=== PATIENT | male | born 1935 | race Caucasian/White ===

== ENCOUNTER 2018-08-28 20:15 | Observation (INO) | payer MEDICARE, BC ==
[2018-08-28] MEDS ORDERED: ASPIRIN 81 MG CHEWABLE TABLET PO ONE (20:42)
--- NOTE | 2018-08-28 20:51 | Emergency Department Record ---
History of Present Illness - General Chief Complaint: Chest Pain Stated Complaint: CHEST PAIN,EXTREMITY NUMBNESS Time Seen by Provider: 08/28/18 20:36 Source: Patient Mode of Arrival: Ambulatory Limitations: No limitations - History of Present Illness Initial Comments: pt had hip replacement 2 wks ago. today he developed chills, mild chest pain, tingling in his l hand Complaint: Chest pain Onset/Timin -: Hour(s) Onset: During rest Pain Location: Substernal Pain Radiation: None Severity: Mild Severity scale (1-10): 2 Quality: Aching, Other Consistency: Constant Improves With: Nothing Context: Recent surgery Anginal Symptoms: Nausea, Other Other Symptoms: Leg swelling, Other Treatments Prior to Arrival: Aspirin - Related Data Home Medications Medication Instructions Recorded Confirmed Last Taken Biotin 5 mg PO DAILY 08/28/18 08/28/18 08/28/18 Leuprolide Acetate [Eligard] 7.5 mg SQ DAILY 08/28/18 08/28/18 08/28/18 Meloxicam 7.5 mg PO DAILY 08/28/18 08/28/18 08/28/18 Tramadol HCl [Ultram] 50 mg PO Q6H PRN 08/28/18 08/28/18 08/28/18 Previous Rx's Medication Instructions Recorded Enalapril Maleate [Vasotec] 5 mg PO DAILY #14 tablet 11/27/13 Allergies Allergy/AdvReac Type Severity Reaction Status Date / Time Penicillins Allergy Unknown HIVES Unverified 08/02/14 14:21 ciprofloxacin [From Cipro] Allergy MUSCLE PAIN Verified 08/02/14 14:21 ciprofloxacin HCl Allergy MUSCLE PAIN Verified 08/02/14 14:21 [From Cipro] Sulfa (Sulfonamide Allergy ITCHING Verified 08/02/14 14:21 Antibiotics) nitroglycerin AdvReac HYPERSENSIT Verified 08/02/14 14:21 [From Nitro-Bid] IVITY Travel Screening - Travel/Exposure Within Last 30 Days Have you traveled within the last 30 days?: No - Travel Symptoms Symptom Screening: None Review of Systems Reviewed: No additional complaints except as noted below Constitutional: Reports: As per HPI, Chills. Denies: Fever, Malaise, Night sweats, Weakness, Weight change Eyes: Reports: As per HPI. Denies: Eye discharge, Eye pain, Photophobia, Vision change ENT: Reports: As per HPI. Denies: Congestion, Dental pain, Ear pain, Epistaxis, Hearing loss, Throat pain Respiratory: Reports: As per HPI. Denies: Cough, Dyspnea, Hemoptysis, Stridor, Wheezes Cardiovascular: Reports: As per HPI, Chest pain. Denies: Arrhythmia, Dyspnea on exertion, Edema, Murmurs, Orthopnea, Palpitations, Paroxysmal nocturnal dyspnea, Rheumatic Fever, Syncope Endocrine: Reports: As per HPI. Denies: Fatigue, Heat or cold intolerance, Polydipsia, Polyuria Gastrointestinal: Reports: As per HPI. Denies: Abdominal pain, Constipation, Diarrhea, Hematemesis, Hematochezia, Melena, Nausea, Vomiting Genitourinary: Reports: As per HPI. Denies: Dysuria, Frequency, Hematuria, Incontinence, Retention, Testicular pain, Testicular mass, Urgency Musculoskeletal: Reports: As per HPI. Denies: Arthralgia, Back pain, Gout, Joint swelling, Myalgia, Neck pain Skin: Reports: As per HPI. Denies: Bruising, Change in color, Change in hair/nails, Lesions, Pruritus, Rash Neurological: Reports: As per HPI. Denies: Abnormal gait, Confusion, Headache, Numbness, Paresthesias, Seizure, Tingling, Tremors, Vertigo, Weakness Psychiatric: Reports: As per HPI. Denies: Anxiety, Auditory hallucinations, Depression, Homicidal thoughts, Suicidal thoughts, Visual hallucinations Hematological/Lymphatic: Reports: As per HPI. Denies: Anemia, Blood Clots, Easy bleeding, Easy bruising, Swollen glands Past Medical History - SOCIAL HISTORY Smoking Status: Former smoker Alcohol Use: None Drug Use: None - RESPIRATORY Hx Respiratory Disorders: No - CARDIOVASCULAR Hx Cardio Disorders: Yes Hx Hypertension: Yes - NEURO Hx Neuro Disorders: No - GI Hx GI Disorders: Yes Hx Reflux: Yes Hx of Polyps: Yes - Hx Genitourinary Disorders: Yes Hx Prostate Problems: Yes (CA) - ENDOCRINE Hx Endocrine Disorders: No - MUSCULOSKELETAL Hx Musculoskeletal Disorders: Yes Hx Arthritis: Yes - PSYCH Hx Psych Problems: No - HEMATOLOGY/ONCOLOGY Hx Hematology/Oncology Disorders: Yes Hx Cancer: Yes (basal cell ca forehead, prostate) Family Medical History Any Significant Family History?: No Family Hx Comment (NOT TO BE USED IN PLACE OF ITEMS BELOW): denies Physical Exam - General General Appearance: Alert, Oriented x3, Cooperative, Mild distress - Head Head exam: Normal inspection - Eye Eye exam: Normal appearance, PERRL, EOMI Pupils: Normal accommodation - ENT ENT exam: Normal exam, Mucous membranes moist, Normal external ear exam, Normal orophraynx Ear exam: Normal external inspection. negative: External canal tenderness Nasal Exam: Normal inspection. negative: Discharge, Sinus tenderness Mouth exam: Normal external inspection, Tongue normal Teeth exam: Normal inspection. negative: Dental caries Throat exam: Normal inspection. negative: Tonsillar erythema, Tonsillar exudate - Neck Neck exam: Normal inspection, Full ROM. negative: Tenderness - Respiratory Respiratory exam: Normal lung sounds bilaterally. negative: Respiratory distress - Cardiovascular Cardiovascular Exam: Regular rate, Normal rhythm, Normal heart sounds - GI/Abdominal GI/Abdominal exam: Soft, Normal bowel sounds. negative: Tenderness - Rectal Rectal exam: Deferred - exam: Deferred - Extremities Extremities exam: Normal capillary refill, Tenderness (post op r). negative: Full ROM - Back Back exam: Reports: Normal inspection, Full ROM. Denies: Muscle spasm, Rash noted, Tenderness - Neurological Neurological exam: Alert, CN II-XII intact, Normal gait, Oriented X3 - Psychiatric Psychiatric exam: Normal affect, Normal mood - Skin Skin exam: Dry, Intact, Normal color, Warm Course Vital Signs 08/28/18 20:19 Temperature 97.4 F L Pulse Rate 97 H Respiratory 20 Rate Pulse Ox 98 - Reevaluation(s) Reevaluation #1: 08/28/18 23:56 pt refuses ntg. still has slight cp Reevaluation #2: 08/28/18 23:56 pts hgb has dropped from 12 to 8,5 from surgery Medical Decision Making - Lab Data Result diagrams: 08/28/18 20:20 08/28/18 20:20 Disposition Disposition: Admit Clinical Impression: Hyponatremia Chest pain Qualifiers: Chest pain type: unspecified Qualified Code(s): R07.9 - Chest pain, unspecified Anemia Qualifiers: Anemia type: other cause Other causes of anemia: acute posthemorrhagic Qualified Code(s): D62 - Acute posthemorrhagic anemia Disposition: Still a Patient at [facility] Decision to Admit: Admit from ER Decision to Admit Date: 08/28/18 Decision to Admit Time: 23:59 Forms: Patient Portal Access Quality - Quality Measures Quality Measures: N/A - Blood Pressure Screening Does Patient Have Any of the Following: Active Dx of HTN Blood Pressure Classification: Hypertensive Reading Systolic Measurement: 165 Diastolic Measurement: 77 Screening for High Blood Pressure: Patient Exclusion, Hx of HTN [[id number]]
[2018-08-28 20:58] LABS: HEMATOCRIT 26.2 % (42.0-52.0); MEAN CELL VOLUME 94.6 fl (81-97); MEAN CORPUSCULAR HEMOGLOBIN 30.6 pg (27-33); MEAN CORPUSCULAR HGB CONC 32.4 g/dl (32-36); MEAN PLATELET VOLUME 8.8 fl (7.4-10.4); RED BLOOD COUNT 2.77 M/uL (4.40-5.70); RED CELL DISTRIBUTION WIDTH 15.1 % (11.5-14.5)
[2018-08-28 20:59] LABS: HEMOGLOBIN 8.5 gm/dl (14.0-18.0); PLATELET COUNT 686 K/uL (130-400)
[2018-08-28 21:06] LABS: BLOOD UREA NITROGEN 18 mg/dL (8-23)
[2018-08-28 21:07] LABS: URINE APPEARANCE CLEAR; URINE BILIRUBIN NEGATIVE (NEGATIVE); URINE BLOOD NEGATIVE (NEGATIVE); URINE COLOR STRAW; URINE GLUCOSE (UA) NEGATIVE (NEGATIVE); URINE KETONE NEGATIVE (NEGATIVE); URINE LEUKOCYTE ESTERASE NEGATIVE (NEGATIVE); URINE NITRITE NEGATIVE (NEGATIVE); URINE PROTEIN NEGATIVE (NEGATIVE); URINE UROBILINOGEN 0.2 E.U./dL (0.20 - 1.00)
[2018-08-28 21:07] LABS: CREATININE 0.8 mg/dL (0.7-1.2); EST GLOMERULAR FILTRATION RATE > 60 mL/min
[2018-08-28 21:09] LABS: GLUCOSE,RANDOM 124 mg/dL (74-109)
[2018-08-28 21:12] LABS: ABSOLUTE NEUTROPHIL COUNT 11.82; CREATINE PHOSPHOKINASE 144 U/L (39-308)
[2018-08-28 21:13] LABS: PLATELET ESTIMATE INCREASED (NORMAL)
[2018-08-28 21:14] LABS: CKMB 2.7 ng/mL (<6.73)
[2018-08-29] MEDS ORDERED: ACETAMINOPHEN 500 MG TABLET PO PRN (00:20)
[2018-08-29] MEDS: AL HYDROX/MAG HYDROX 30ML UD PO PRN ×2 (00:35→09:29)
[2018-08-29] MEDS: TRAMADOL HCL 50 MG TABLET PO PRN ×2 (06:11→12:54)
[2018-08-29 06:28] LABS: HEMATOCRIT 29.1 % (42.0-52.0); HEMOGLOBIN 9.1 gm/dl (14.0-18.0); MEAN CELL VOLUME 95.7 fl (81-97); MEAN CORPUSCULAR HEMOGLOBIN 29.9 pg (27-33); MEAN CORPUSCULAR HGB CONC 31.3 g/dl (32-36); MEAN PLATELET VOLUME 8.3 fl (7.4-10.4); PLATELET COUNT 725 K/uL (130-400); RED BLOOD COUNT 3.04 M/uL (4.40-5.70); RED CELL DISTRIBUTION WIDTH 15.3 % (11.5-14.5); WHITE BLOOD COUNT W/O DIFF 10.8 K/uL (4.2-12.2)
[2018-08-29 06:41] LABS: BLOOD UREA NITROGEN 13 mg/dL (8-23); CREATININE 0.8 mg/dL (0.7-1.2); EST GLOMERULAR FILTRATION RATE > 60 mL/min; GLUCOSE,RANDOM 105 mg/dL (74-109)
[2018-08-29 06:46] LABS: CKMB 2.1 ng/mL (<6.73)
[2018-08-29 06:57] LABS: ABSOLUTE NEUTROPHIL COUNT 7.85; PLATELET ESTIMATE INCREASED (NORMAL)
[2018-08-29] MEDS ORDERED: PANTOPRAZOLE SODIUM 40 MG TABLET PO SCH (07:00)
--- NOTE | 2018-08-29 09:58 | History & Physical ---
History of Present Illness - Date of Service Date of Service for History & Physical: 08/29/18 - History of Present Illness Admitting Diagnosis: chest pain, anemia, hyponatremia History of Present Illness: Mr. Arechiga is an 82 year-old male who presented to the ED the evening of 08/28/18 with complaint of mild chest pain, nausea, and tingling in his left hand. He had a right hip replacement by Dr. Sotelo 2 weeks ago. His health history includes: ex-smoker, HTN, GERD, prostate CA, arthritis, and basal cell carcinoma. In the ED, his vitals were stable, labs revealed a hgb of 8.5 (was 12 after surgery), sodium of 128, troponin normal. D-dimer was elevated at 8.01, CTA was negative for PE. UA negative. EKG unremarkable, he refused nitroglycerine. He was admitted observation for serial troponins. 08/29/18: Pt. is resting in bed. He states that he thinks his discomfort is more due to GI upset at this time. 2nd troponin was negative, Na increased to 133, Hgb 9.1 and Hct 29.1 this morning. Pt. states that he has not been eating as much as he normally used to since his hip replacement 2 weeks ago. Dietary consulted to provided education regarding iron and protein-rich foods. Will plan to d/c home if 3rd troponin neg. PCP: Dr. Morin Travel Screening - Travel/Exposure Within Last 30 Days Have you traveled within the last 30 days?: No - Travel/Exposure Within Last Year Have you traveled outside the [place] in the last year?: No - Additonal Travel Details Have you been exposed to anyone with a communicable illness?: No - Travel Symptoms Symptom Screening: None Review of Systems Constitutional: Reports: As per HPI, Chills. Denies: Fever, Malaise, Night sweats, Weakness, Weight change Eyes: Reports: As per HPI. Denies: Eye discharge, Eye pain, Photophobia, Vision change ENT: Reports: As per HPI. Denies: Congestion, Dental pain, Ear pain, Epistaxis, Hearing loss, Throat pain Respiratory: Reports: As per HPI. Denies: Cough, Dyspnea, Hemoptysis, Stridor, Wheezes Cardiovascular: Reports: As per HPI, Chest pain. Denies: Arrhythmia, Dyspnea on exertion, Edema, Murmurs, Orthopnea, Palpitations, Paroxysmal nocturnal dyspnea, Rheumatic Fever, Syncope Endocrine: Reports: As per HPI. Denies: Fatigue, Heat or cold intolerance, Polydipsia, Polyuria Gastrointestinal: Reports: As per HPI. Denies: Abdominal pain, Constipation, Diarrhea, Hematemesis, Hematochezia, Melena, Nausea, Vomiting Genitourinary: Reports: As per HPI. Denies: Dysuria, Frequency, Hematuria, Incontinence, Retention, Testicular pain, Testicular mass, Urgency Musculoskeletal: Reports: As per HPI. Denies: Arthralgia, Back pain, Gout, Joint swelling, Myalgia, Neck pain Skin: Reports: As per HPI. Denies: Bruising, Change in color, Change in hair/nails, Lesions, Pruritus, Rash Neurological: Reports: As per HPI. Denies: Abnormal gait, Confusion, Headache, Numbness, Paresthesias, Seizure, Tingling, Tremors, Vertigo, Weakness Psychiatric: Reports: As per HPI. Denies: Anxiety, Auditory hallucinations, Depression, Homicidal thoughts, Suicidal thoughts, Visual hallucinations Hematological/Lymphatic: Reports: As per HPI. Denies: Anemia, Blood Clots, Easy bleeding, Easy bruising, Swollen glands Past Medical History - SOCIAL HISTORY Smoking Status: Former smoker Alcohol Use: None Drug Use: None - RESPIRATORY Hx Respiratory Disorders: No - CARDIOVASCULAR Hx Cardio Disorders: Yes Hx Hypertension: Yes - NEURO Hx Neuro Disorders: No - GI Hx GI Disorders: Yes Hx Reflux: Yes Hx of Polyps: Yes - Hx Genitourinary Disorders: Yes Hx Prostate Problems: Yes (CA) - ENDOCRINE Hx Endocrine Disorders: No Hx Diabetes: No Hx Thyroid Disease: No - MUSCULOSKELETAL Hx Musculoskeletal Disorders: Yes Hx Arthritis: Yes (generalized) - PSYCH Hx Psych Problems: No - HEMATOLOGY/ONCOLOGY Hx Hematology/Oncology Disorders: Yes Hx Cancer: Yes (basal cell ca forehead, prostate) Hx Chemotherapy: No Hx Radiation Therapy: No Family Medical History Any Significant Family History?: Yes Hx Cancer: Father H&P Meds/Allergies - Allergies Allergies: Allergies Allergy/AdvReac Type Severity Reaction Status Date / Time Penicillins Allergy Unknown HIVES Unverified 08/02/14 14:21 ciprofloxacin [From Cipro] Allergy MUSCLE PAIN Verified 08/02/14 14:21 ciprofloxacin HCl Allergy MUSCLE PAIN Verified 08/02/14 14:21 [From Cipro] Sulfa (Sulfonamide Allergy ITCHING Verified 08/02/14 14:21 Antibiotics) nitroglycerin AdvReac HYPERSENSIT Verified 08/02/14 14:21 [From Nitro-Bid] IVITY - Home Medications Home Medications Medication Instructions Recorded Confirmed Last Taken Biotin 5 mg PO DAILY 08/28/18 08/28/18 08/28/18 Leuprolide Acetate [Eligard] 7.5 mg SQ ASDIR 08/28/18 08/29/18 08/28/18 Tramadol HCl [Ultram] 50 mg PO Q6H PRN 08/28/18 08/28/18 08/28/18 Celecoxib 200 mg PO DAILY 08/29/18 08/29/18 Unknown Previous Rx's Medication Instructions Recorded Enalapril Maleate [Vasotec] 5 mg PO DAILY #14 tablet 11/27/13 - Active Medications Active Medications: Current Medications Acetaminophen (Tylenol 500mg Tab) 1,000 mg PO Q6H PRN PRN Reason: PAIN - MILD(1-4)/FEVER Al Hydroxide/Mg Hydroxide (Maalox) 30 ml PO Q4H PRN PRN Reason: GI UPSET Last Admin: 08/29/18 09:29 Dose: 30 ml Documented by: Aspirin (Ecotrin (Ec)) 325 mg PO DAILY [facility] Last Admin: 08/29/18 09:28 Dose: 325 mg Documented by: Celecoxib (Celebrex) 200 mg PO DAILY [facility] Last Admin: 08/29/18 09:29 Dose: 100 mg Documented by: Docusate Sodium (Colace) 100 mg PO BID [facility] Last Admin: 08/29/18 09:27 Dose: 100 mg Documented by: Enalapril Maleate (Vasotec) 5 mg PO DAILY [facility] Last Admin: 08/29/18 09:28 Dose: 5 mg Documented by: [facility] Admin: 08/29/18 06:11 Dose: 40 mg Documented by: Tramadol HCl (Ultram) 50 mg PO Q6H PRN PRN Reason: PAIN - MILD TO MODERATE (1-7) Last Admin: 08/29/18 06:11 Dose: 50 mg Documented by: Physical Exam - Vital Signs Vital Signs: Vital Signs - Last 24 Hrs Temp Pulse Pulse Pulse Resp BP BP 08/29/18 08:00 98.0 F 80 18 117/59 08/29/18 04:15 98.1 F 82 16 110/68 08/29/18 00:20 97.9 F 85 16 162/74 08/29/18 00:14 88 18 149/82 08/28/18 22:39 82 22 165/77 08/28/18 21:28 84 20 148/78 08/28/18 20:19 97.4 F L 97 H 20 Pulse Ox 08/29/18 08:00 98 08/29/18 04:15 97 08/29/18 00:20 100 08/29/18 00:14 100 08/28/18 22:39 97 08/28/18 21:28 100 08/28/18 20:19 98 - General General Appearance: Alert, Oriented x3, Cooperative, No acute distress Limitations: No limitations - Head Head exam: Normal inspection - Eye Eye exam: Normal appearance, PERRL, EOMI Pupils: Normal accommodation - ENT ENT exam: Normal exam, Mucous membranes moist, Normal external ear exam, Normal orophraynx Ear exam: Normal external inspection. negative: External canal tenderness Nasal Exam: Normal inspection. negative: Discharge, Sinus tenderness Mouth exam: Normal external inspection, Tongue normal Teeth exam: Normal inspection. negative: Dental caries Throat exam: Normal inspection. negative: Tonsillar erythema, Tonsillar exudate - Neck Neck exam: Normal inspection, Full ROM. negative: Tenderness - Respiratory Respiratory exam: Normal lung sounds bilaterally. negative: Respiratory distress - Cardiovascular Cardiovascular Exam: Regular rate, Normal rhythm, Normal heart sounds - GI/Abdominal GI/Abdominal exam: Soft, Normal bowel sounds. negative: Tenderness - Rectal Rectal exam: Deferred - exam: Deferred - Extremities Extremities exam: Normal capillary refill, Tenderness (post op r). negative: Full ROM - Back Back exam: Reports: Normal inspection, Full ROM. Denies: Muscle spasm, Rash noted, Tenderness - Neurological Neurological exam: Alert, CN II-XII intact, Normal gait, Oriented X3 - Psychiatric Psychiatric exam: Normal affect, Normal mood - Skin Skin exam: Dry, Intact, Warm, Other (bruising of right hip, right hip incision well-approximated, no drainage) Results - Labs Result Diagrams: 08/29/18 06:15 08/29/18 06:15 Labs Last 24 Hours: Laboratory Results - last 24 hr 08/28/18 08/28/18 08/28/18 20:20 20:20 20:20 WBC 15.0 H RBC 2.77 L Hgb 8.5 L Hct 26.2 L MCV 94.6 MCH 30.6 MCHC 32.4 RDW 15.1 H Plt Count 686 H MPV 8.8 Neutrophils % 79.0 Eosinophils % Not Reportable Basophils % Not Reportable Absolute Neutrophils 11.82 Lymphocytes 17.0 Monocytes 3.0 Platelet Estimate Increased RBC Morphology Normal Eosinophil Count 1.0 D-Dimer 8.01 H Sodium 128 L Potassium 3.7 Chloride 89 L Carbon Dioxide 26.0 Anion Gap 13.0 BUN 18 Creatinine 0.8 Estimated GFR > 60 Random Glucose 124 H Calcium 9.6 Creatine Kinase 144 CK-MB (CK-2) 2.7 Troponin T < 0.010 NT-Pro-B Natriuret Pep 710.40 H Urine Color Urine Appearance Urine pH Ur Specific Rock Urine Protein Urine Glucose (UA) Urine Ketones Urine Blood Urine Nitrite Urine Bilirubin Urine Urobilinogen Ur Leukocyte Esterase 08/28/18 08/29/18 08/29/18 21:00 06:15 06:15 WBC 10.8 RBC 3.04 L Hgb 9.1 L Hct 29.1 L MCV 95.7 MCH 29.9 MCHC 31.3 L RDW 15.3 H Plt Count 725 H MPV 8.3 Neutrophils % 73.0 Eosinophils % Not Reportable Basophils % Not Reportable Absolute Neutrophils 7.85 Lymphocytes 20.0 Monocytes 6.0 Platelet Estimate Increased RBC Morphology Normal Eosinophil Count 1.0 D-Dimer Sodium 133 L Potassium 4.0 Chloride 94 L Carbon Dioxide 27.0 Anion Gap 12.0 BUN 13 Creatinine 0.8 Estimated GFR > 60 Random Glucose 105 Calcium 9.5 Creatine Kinase CK-MB (CK-2) Troponin T NT-Pro-B Natriuret Pep Urine Color Straw Urine Appearance Clear Urine pH 7.5 Ur Specific Rock <= 1.005 Urine Protein Negative Urine Glucose (UA) Negative Urine Ketones Negative Urine Blood Negative Urine Nitrite Negative Urine Bilirubin Negative Urine Urobilinogen 0.2 Ur Leukocyte Esterase Negative 08/29/18 06:15 WBC RBC Hgb Hct MCV MCH MCHC RDW Plt Count MPV Neutrophils % Eosinophils % Basophils % Absolute Neutrophils Lymphocytes Monocytes Platelet Estimate RBC Morphology Eosinophil Count D-Dimer Sodium Potassium Chloride Carbon Dioxide Anion Gap BUN Creatinine Estimated GFR Random Glucose Calcium Creatine Kinase CK-MB (CK-2) 2.1 Troponin T < 0.010 NT-Pro-B Natriuret Pep Urine Color Urine Appearance Urine pH Ur Specific Rock Urine Protein Urine Glucose (UA) Urine Ketones Urine Blood Urine Nitrite Urine Bilirubin Urine Urobilinogen Ur Leukocyte Esterase - Imaging and Cardiology CT scan - chest Status: Pending VTE H&P Assessment - Risk for VTE Risk for VTE: Yes Risk Level: Moderate Risk Assessment Date: 08/29/18 Risk Assessment Time: 09:59 VTE Orders Placed or Will Be Placed: Yes Plan - Detailed Diagnosis and Plan (1) Chest pain Current Visit: Yes Status: Acute Qualifiers: Chest pain type: unspecified Qualified Code(s): R07.9 - Chest pain, unspe cified Base Code: R07.9 - CHEST PAIN, UNSPECIFIED Comment: 08/29/18: -NSR on tele -serial troponins neg -presently denies chest discomfort -poss secondary to GERD (symptoms were relieved by GI cocktail) or anemia (2) Anemia Current Visit: Yes Status: Acute Qualifiers: Anemia type: other cause Other causes of anemia: acute posthemorrhagic Qualified Code(s): D62 - Acute posthemorrhagic anemia Base Code: D64.9 - ANEMIA, UNSPECIFIED Comment: 08/29/18: -Hgb 9.1 this morning (was 8.5 in ED) -Likely secondary to surgical blood loss -Nutritional consult placed for dietary modifications (3) GERD (gastroesophageal reflux disease) Current Visit: Yes Status: Acute Base Code: K21.9 - GASTRO-ESOPHAGEAL REFLUX DISEASE WITHOUT ESOPHAGITIS Comment: 08/29/18: -Continue home regimen with omeprazole 20mg daily (substitue for protonix during admission) -maalox 30ml q4h prn (4) Hyponatremia Current Visit: Yes Status: Acute Base Code: E87.1 - HYPO-OSMOLALITY AND HYPONATREMIA Comment: 08/29/18: -Na improved to 133 this am (was 128 in ED) -Nutritional consult ordered for dietary modifications (5) At risk for deep venous thrombosis Current Visit: Yes Status: Acute Base Code: Z91.89 - OTH PERSONAL RISK FACTORS, NOT ELSEWHERE CLASSIFIED Comment: 08/29/18: -Mod risk due to right VIRGEN 2 weeks ago -Elevated d-dimer, neg chest CTA -will order lovenox 40mg SC qhs if hospitalization greater than 24h -encourage ambulation (6) Full code status Current Visit: Yes Status: Acute Base Code: Z78.9 - OTHER SPECIFIED HEALTH STATUS Comment: 08/29/18: -Pt. is a full code
[2018-08-29] MEDS ORDERED: DOCUSATE SODIUM 100 MG CAPSULE PO SCH (10:00)
[2018-08-29] MEDS ORDERED: ASPIRIN 325 MG TAB ENTERIC-COATED PO SCH (10:00)
[2018-08-29] MEDS ORDERED: LEUPROLIDE ACETATE 7.5 MG SQ SCH (10:00)
[2018-08-29] MEDS ORDERED: MELOXICAM 7.5 MG TABLET PO SCH (10:00)
[2018-08-29] MEDS ORDERED: BIOTIN 5 MG PO SCH (10:00)
[2018-08-29] MEDS ORDERED: CELECOXIB 100 MG CAPSULE PO SCH (10:00)
[2018-08-29] MEDS ORDERED: ENALAPRIL 5 MG TABLET PO SCH (10:00)
--- NOTE | 2018-08-29 13:24 | Discharge Summary ---
Providers Discharge Summary Date: 08/29/18 Date of admission: 08/29/18 00:15 Expected Date of Discharge: 08/29/18 Attending physician: KALIN JOHNSTON Primary care physician: LAURA MORIN D.O. Physical Exam - Vital Signs Vital Signs: Vital Signs - Last 24 Hrs Temp Pulse Pulse Pulse Resp BP BP 08/29/18 11:20 97.8 F 74 17 103/55 08/29/18 10:37 98 F 117/59 08/29/18 09:00 82 80 18 08/29/18 08:00 98.0 F 80 18 117/59 08/29/18 04:15 98.1 F 82 16 110/68 08/29/18 00:20 97.9 F 85 16 162/74 08/29/18 00:14 88 18 149/82 08/28/18 22:39 82 22 165/77 08/28/18 21:28 84 20 148/78 08/28/18 20:19 97.4 F L 97 H 20 Pulse Ox 08/29/18 11:20 97 08/29/18 10:37 08/29/18 09:00 08/29/18 08:00 98 08/29/18 04:15 97 08/29/18 00:20 100 08/29/18 00:14 100 08/28/18 22:39 97 08/28/18 21:28 100 08/28/18 20:19 98 - General General Appearance: Alert, Oriented x3, Cooperative, No acute distress Limitations: No limitations - Head Head exam: Normal inspection - Eye Eye exam: Normal appearance, PERRL, EOMI Pupils: Normal accommodation - ENT ENT exam: Normal exam, Mucous membranes moist, Normal external ear exam, Normal orophraynx Ear exam: Normal external inspection. negative: External canal tenderness Nasal Exam: Normal inspection. negative: Discharge, Sinus tenderness Mouth exam: Normal external inspection, Tongue normal Teeth exam: Normal inspection. negative: Dental caries Throat exam: Normal inspection. negative: Tonsillar erythema, Tonsillar exudate - Neck Neck exam: Normal inspection, Full ROM. negative: Tenderness - Respiratory Respiratory exam: Normal lung sounds bilaterally. negative: Respiratory distress - Cardiovascular Cardiovascular Exam: Regular rate, Normal rhythm, Normal heart sounds - GI/Abdominal GI/Abdominal exam: Soft, Normal bowel sounds. negative: Tenderness - Rectal Rectal exam: Deferred - exam: Deferred - Extremities Extremities exam: Normal capillary refill, Tenderness (post op r). negative: Full ROM - Back Back exam: Reports: Normal inspection, Full ROM. Denies: Muscle spasm, Rash noted, Tenderness - Neurological Neurological exam: Alert, CN II-XII intact, Normal gait, Oriented X3 - Psychiatric Psychiatric exam: Normal affect, Normal mood - Skin Skin exam: Dry, Intact, Warm, Other (bruising of right hip, right hip incision well-approximated, no drainage) Hospitalization - Hospitalization Admission Diagnosis: chest pain, anemia, hyponatremia - Problem List/Discharge Diagnosis (1) Chest pain Current Visit: Yes Status: Acute Discharge Diagnosis: Chest pain type: unspecified Qualified Code(s): R07.9 - Chest pain, unspecified Base Code: R07.9 - CHEST PAIN, UNSPECIFIED Comment: 08/29/18: -NSR on tele -serial troponins neg -presently denies chest discomfort -poss secondary to GERD (symptoms were relieved by GI cocktail) or anemia (2) Anemia Current Visit: Yes Status: Acute Discharge Diagnosis: Anemia type: other cause Other causes of anemia: acute posthemorrhagic Qualified Code(s): D62 - Acute posthemorrhagic anemia Base Code: D64.9 - ANEMIA, UNSPECIFIED Comment: 08/29/18: -Hgb 9.1 this morning (was 8.5 in ED) -Likely secondary to surgical blood loss -Nutritional consult placed for dietary modifications (3) GERD (gastroesophageal reflux disease) Current Visit: Yes Status: Acute Base Code: K21.9 - GASTRO-ESOPHAGEAL REFLUX DISEASE WITHOUT ESOPHAGITIS Comment: 08/29/18: -Continue home regimen with omeprazole 20mg daily (substitue for protonix during admission) -maalox 30ml q4h prn (4) Hyponatremia Current Visit: Yes Status: Acute Base Code: E87.1 - HYPO-OSMOLALITY AND HYPONATREMIA Comment: 08/29/18: -Na improved to 133 this am (was 128 in ED) -Nutritional consult ordered for dietary modifications (5) At risk for deep venous thrombosis Current Visit: Yes Status: Acute Base Code: Z91.89 - OTH PERSONAL RISK FACTORS, NOT ELSEWHERE CLASSIFIED Comment: 08/29/18: -Mod risk due to right VIRGEN 2 weeks ago -Elevated d-dimer, neg chest CTA -will order lovenox 40mg SC qhs if hospitalization greater than 24h -encourage ambulation (6) Full code status Current Visit: Yes Status: Acute Base Code: Z78.9 - OTHER SPECIFIED HEALTH STATUS Comment: 08/29/18: -Pt. is a full code - Hospitalization Course Disposition: Home, Self-Care Hospital Course: Mr. Arechiga is an 82 year-old male who presented to the ED the evening of 08/28/18 with complaint of mild chest pain, nausea, and tingling in his left hand. He had a right hip replacement by Dr. Sotelo 2 weeks ago. His health history includes: ex-smoker, HTN, GERD, prostate CA, arthritis, and basal cell carcinoma. In the ED, his vitals were stable, labs revealed a hgb of 8.5 (was 12 after surgery), sodium of 128, troponin normal. D-dimer was elevated at 8.01, CTA was negative for PE. UA negative. EKG unremarkable, he refused nitroglycerine. He was admitted observation for serial troponins. 08/29/18: Pt. is resting in bed. He states that he thinks his discomfort is more due to GI upset at this time. 2nd troponin was negative, Na increased to 133, Hgb 9.1 and Hct 29.1 this morning. Pt. states that he has not been eating as much as he normally used to since his hip replacement 2 weeks ago. Dietary consulted to provided education regarding iron and protein-rich foods. Will plan to d/c home if 3rd troponin neg. 08/29/18 1514: 3rd troponin neg, will d/c home, f/u with PCP within 1 week PCP: Dr. Morin Procedures: Imaging and X-Rays 08/28/18 21:25 CHEST CTA w contrast [CTA] Stat Cardiology Procedures 08/28/18 20:42 EKG NOW 08/29/18 00:20 EKG QDX2@0600 08/29/18 00:37 [employer] .Continuous Abnormal Labs: Abnormal Lab Results 08/28/18 08/28/18 08/28/18 Range/Units 20:20 20:20 20:20 WBC 15.0 H (4.2-12.2) K/uL RBC 2.77 L (4.40-5.70) M/uL Hgb 8.5 L (14.0-18.0) gm/dl Hct 26.2 L (42.0-52.0) % MCHC (32-36) g/dl RDW 15.1 H (11.5-14.5) % Plt Count 686 H (130-400) K/uL D-Dimer 8.01 H (0-0.59) mg/L FEU Sodium 128 L (136-145) mmol/L Chloride 89 L (98-107) mmol/L Random Glucose 124 H (74-109) mg/dL NT-Pro-B Natriuret Pep 710.40 H (<450) pg/mL 08/29/18 08/29/18 Range/Units 06:15 06:15 WBC (4.2-12.2) K/uL RBC 3.04 L (4.40-5.70) M/uL Hgb 9.1 L (14.0-18.0) gm/dl Hct 29.1 L (42.0-52.0) % MCHC 31.3 L (32-36) g/dl RDW 15.3 H (11.5-14.5) % Plt Count 725 H (130-400) K/uL D-Dimer (0-0.59) mg/L FEU Sodium 133 L (136-145) mmol/L Chloride 94 L (98-107) mmol/L Random Glucose (74-109) mg/dL NT-Pro-B Natriuret Pep (<450) pg/mL Condition at Discharge: (2) Stable Discharge Diagnosis: Anemia, hyponatremia VTE Discharge VTE Reason For No Overlap Therapy: Not Indicated Discharge Medications - Discharge Medications Home Medications: Ambulatory Orders Calcium Citrate/Vitamin D3 [Calcium Citrate - Vit D Caplet] 1 each PO BID 11/27/13 [Last Taken 08/28/18] Enalapril Maleate [Vasotec] 5 mg PO DAILY #14 tablet 11/27/13 [Last Taken 08/28/18] [place]-3 Fatty Acids/Fish Oil [Fish Oil 1,000 mg Softgel] 1 each PO BID 11/27/13 [Last Taken 08/28/18] Omeprazole 20 mg PO DAILY 11/27/13 [Last Taken 08/28/18] Acetaminophen [Tylenol 325Mg] 325 mg PO QID PRN 08/02/14 [Last Taken 08/28/18] Biotin 5 mg PO DAILY 08/28/18 [Last Taken 08/28/18] Leuprolide Acetate [Eligard] 7.5 mg SQ ASDIR 08/28/18 [Last Taken 08/28/18] Tramadol HCl [Ultram] 50 mg PO Q6H PRN 08/28/18 [Last Taken 08/28/18] Celecoxib 200 mg PO DAILY 08/29/18 [Last Taken Unknown] Discharge Plan - Discharge Instructions Activity at Discharge: Increase Activity as Tolerated Diet at Discharge: Advance to Usual Diet Additional Instructions: Follow up with your PCP within 1 week Return to the ED if any chest pain Quality Measures - Quality Measures Quality Measures: Advance Directives, Documentation of Current Medications in Me dical Record, Elder Maltreatment Screen and Follow-Up Plan, Screening for High Blood Pressure and F/U Documented - Current Medications Quality Measure: Measure #130: Documentation of Current Medications Documentation of Current Medications: <Current Medications Documented/Reviewed> [G8427] - Blood Pressure Screening Quality Measure: Screening for High Blood Pressure and Follow-Up Documented Does Patient Have Any of the Following: Active Dx of HTN Blood Pressure Classification: Normal BP Reading Systolic Measurement: 117 Diastolic Measurement: 59 Screening for High Blood Pressure: Patient Exclusion, Hx of HTN [G9744] - Advance Directives Quality Measure: Measure #47: Care Plan Advance Directives Established: Yes Advance Directives Information Provided To Patient: Yes Advance Directives on File: No Living Will: Yes Power of Jumpbasting Facing Baster: Yes Power of Jumpbasting Facing Baster Name: KAYY ALTMAN Advance Care Planning: <Care Plan/Decision Maker Documented; Discussed & Documented> [[id number]] - Elder Abuse Suspicion Index Screening: Elder Abuse Suspicion Index Screening Rely on people for bathing, dressing, shopping, banking, etc: Yes Prevented from getting food, clothes, medication, etc: No Made to feel shamed or threatened by someone: No Forced to sign papers or use money against will: No Feel afraid, touched in ways not wanted or hurt physically: No Poor eye contact, withdrawn, malnourished, cuts or bruises: No Screening Result: Negative result EASI Reference Information: Ltety HAMMONDS, Lolita C, Nithya D, Linda Brand.Development and validation of a tool to assist physicians identification of elder abuse: The Elder Abuse Suspicion Index (EASI ). Journal of Elder Abuse and Neglect, 2008; 20 (3): 276-300. - Elder Maltreatment Screen Quality Measures: Elder Maltreatment Screen and Follow-Up Plan Elder Maltreatment Screen: <Negative, No Follow-Up Plan Required> [G8734]
[2018-08-29 14:34] LABS: CKMB 1.7 ng/mL (<6.73)
--- NOTE | 2018-08-29 22:14 | CT ANGIOGRAM REPORT ---
EXAM: CT ANGIOGRAM CHEST CTA w contrast HISTORY: MID CHEST PAIN AND PRESSURE, STARTED TODAY. TECHNIQUE: CT angiogram of the chest and pulmonary arteries with 85 mL Omnipaque-350. COMPARISON: None. FINDINGS: VASCULAR: Pulmonary arteries are normal caliber. No evidence of embolism. THORACIC AORTA: No aneurysm or dissection. LUNGS: No sign of pneumonia, effusion, edema, or pneumothorax. Questionable pulmonary edema. MEDIASTINUM AND STEPHON: No adenopathy. Airway is clear. The heart is of normal size. No other mediastinal pathology found. AXILLA: No adenopathy. SKELETAL: Thoracic spine shows no suspicious vertebral body lesion. The ribs show no specific lesion. The sternum appears intact. IMPRESSION: NO EVIDENCE OF PULMONARY EMBOLISM OR OTHER ACUTE CHEST PATHOLOGY. JOB NUMBER: [id number] [facility]
== END 2018-08-29 16:10 | disposition home or self-care (01) ==
LOC: ER 20:15 → MEDSURG 08-29 00:15
PROVIDERS: ADMIT Internal Medicine; ATTEND Internal Medicine
DX: R07.9 Chest pain, unspecified (principal); D62 Acute posthemorrhagic anemia; E87.1 Hypo-osmolality and hyponatremia; R20.0 Anesthesia of skin; K21.9 Gastro-esophageal reflux disease without esophagitis; I10 Essential (primary) hypertension; M19.90 Unspecified osteoarthritis, unspecified site; Z96.641 Presence of right artificial hip joint; Z98.890 Other specified postprocedural states; Z85.46 Personal history of malignant neoplasm of prostate; Z85.828 Personal history of other malignant neoplasm of skin
CPT/HCPCS: 71275; 80048; 81003; 82550; 82553; 83880; 84484; 85027; 85379; 93005; 93010; 94761; 99236; 99285